=== PATIENT | male | born 1955 | race Caucasian/White ===

== ENCOUNTER 2016-07-02 08:23 | Inpatient (IN) | payer SELFPAY ==
[2016-07-02] MEDS ORDERED: NORMAL SALINE 1000 ML 1,000 ML IV ONE ×3 (08:44→13:44)
[2016-07-02] MEDS ORDERED: ONDANSETRON HCL INJ/PF 4 MG/2 ML SDV IV ONE (08:44)
[2016-07-02] MEDS ORDERED: FAMOTIDINE INJ/PF 20 MG/2 ML SDV IV ONE (08:45)
--- NOTE | 2016-07-02 08:50 | ER Document Report ---
Addendum entered and electronically signed by NANCY PARRA NP 07/02/16 16:09 : Course - Re-evaluation Re-evalutation: 07/02/16 16:07 RN states that when she spoke with dr Antony he was advised of pt's hypotension , RN states that pt was asymptomatic with hypotension. - Vital Signs Vital signs: Temp Pulse Resp BP Pulse Ox 98.8 F 62 14 93/53 L 96 07/02/16 13:47 07/02/16 13:47 07/02/16 13:47 07/02/16 13:47 07/02/16 13:47 - Laboratory Result Diagrams: 07/02/16 09:00 07/02/16 09:00 Laboratory results interpreted by me: 07/02/16 07/02/16 07/02/16 09:00 09:00 13:00 Lymphocytes % 9.9 L Monocytes % 14.2 H Sodium 125.8 L Chloride 70 L Carbon Dioxide 31 H Anion Gap 25 H BUN 96 H Creatinine 7.54 H Est GFR ( Amer) 9 L Est GFR (Non-Af Amer) 7 L Glucose 127 H Calcium 10.7 H Total Protein 9.2 H Albumin 5.5 H Urine Protein 100 H Urine Glucose (UA) 50 H Urine Blood MODERATE H Original Note: ED GI/ - General Chief Complaint: Vomiting Stated Complaint: NAUSEA AND VOMITING Mode of Arrival: Ambulatory Information source: Patient Notes: Patient presents complaining of nausea and vomiting for the past 3 days. Patient states he's had abdominal pain only with eating food. Patient currently denies any abdominal tenderness at this time. Patient denies any fever, diarrhea, or urinary symptoms. Patient states he last voided just prior to arrival in the emergency department. TRAVEL OUTSIDE OF THE [place] IN LAST 30 DAYS: No - HPI Patient complains to provider of: Abdominal pain - With eating, Vomiting. No: Diarrhea Onset: Other - 3 days Timing/Duration: Persistent Quality of pain: No pain Severity at maximum: Moderate Pain Level: Denies Associated symptoms: Dizzy, Nausea, Vomiting. denies: Diarrhea, Dysuria, Fever , Loss of appetite, Urinary hesitancy, Urinary frequency, Urinary retention, Urinary urgency Exacerbated by: Denies Relieved by: Denies Similar symptoms previously: No Recently seen / treated by doctor: No - Related Data Allergies/Adverse Reactions: No Known Allergies Allergy (Verified 07/02/16 10:04) Home Medications: Current Home Medications Lisinopril/Hydrochlorothiazide [Lisinopril-Hctz 20-25 mg Tab] 1 each PO DAILY [History] Past Medical History - General Information source: Patient - Social History Smoking Status: Never Smoker Chew tobacco use (# tins/day): No Frequency of alcohol use: None Drug Abuse: None Occupation: construction Family History: Reviewed & Not Pertinent Patient has suicidal ideation: No Patient has homicidal ideation: No - Past Medical History Cardiac Medical History: Reports: Hx Hypertension Malignancy Medical History: Reports Hx Colorectal Cancer Past Surgical History: Reports: Hx Bowel Surgery Review of Systems - Review of Systems Constitutional: No symptoms reported. denies: Fever, Recent illness EENT: No symptoms reported Cardiovascular: Dizziness. denies: Chest pain Respiratory: No symptoms reported. denies: Cough, Short of breath Gastrointestinal: Abdominal pain - Only with food, Nausea, Vomiting, Poor fluid intake. denies: Abdomen distended, Diarrhea, Poor appetite Genitourinary: No symptoms reported. denies: Dysuria, Flank pain Male Genitourinary: No symptoms reported Musculoskeletal: No symptoms reported. denies: Back pain Skin: No symptoms reported Hematologic/Lymphatic: No symptoms reported Neurological/Psychological: No symptoms reported Physical Exam - Vital signs Vitals: Temp Pulse Resp BP Pulse Ox 97.3 F 89 20 123/99 H 98 07/02/16 08:27 07/02/16 08:27 07/02/16 08:27 07/02/16 08:27 07/02/16 08:27 - General General appearance: Appears well, Alert In distress: None - HEENT Head: Normocephalic, Atraumatic Eyes: Normal Nasal: Normal Mouth/Lips: Normal Mucous membranes: Normal Neck: Normal - Respiratory Respiratory status: No respiratory distress Chest status: Nontender Breath sounds: Normal. No: Rales, Rhonchi, Stridor, Wheezing Chest palpation: Normal - Cardiovascular Rhythm: Regular Heart sounds: S1 appreciated, S2 appreciated Murmur: No - Abdominal Inspection: Normal Distension: No distension Bowel sounds: Normal Tenderness: Nontender Organomegaly: No organomegaly - Back Back: Normal, Nontender. No: CVA tenderness - Extremities General upper extremity: Normal inspection, Normal strength General lower extremity: Normal inspection, Normal strength - Neurological Neuro grossly intact: Yes Cognition: Normal Orientation: AAOx4 [place] Coma Scale Eye Opening: Spontaneous Serena Coma Scale Verbal: Oriented [place] Coma Scale Motor: Obeys Commands Serena Coma Scale Total: 15 - Psychological Associated symptoms: Normal affect, Normal mood - Skin Skin Temperature: Warm Skin Moisture: Dry Skin Color: Normal Course - Re-evaluation Re-evalutation: 07/02/2016 10:00 Patient states he is unable to ride a urine specimen but he did void just prior to his arrival in the emergency department. Patient states he's been voiding at home but just with decreased frequency. Patient states denies any abdominal tenderness at this time. Patient reports feeling much improved after nausea medication and IV fluids. Discussed abnormal renal function with patient, patient denies any previous history of renal function abnormalities. Consulted with Dr. Paez who recommends consultation with patient's doctor for admission. 07/02/16 10:[address] Antony who agrees to accept patient for admission to telemetry unit, patient advised of plan of care and is agreeable. - Vital Signs Vital signs: Temp Pulse Resp BP Pulse Ox 98.8 F 62 14 93/53 L 96 07/02/16 13:47 07/02/16 13:47 07/02/16 13:47 07/02/16 13:47 07/02/16 13:47 - Laboratory Result Diagrams: 07/02/16 09:00 07/02/16 09:00 Laboratory results interpreted by me: 07/02/16 07/02/16 07/02/16 09:00 09:00 13:00 Lymphocytes % 9.9 L Monocytes % 14.2 H Sodium 125.8 L Chloride 70 L Carbon Dioxide 31 H Anion Gap 25 H BUN 96 H Creatinine 7.54 H Est GFR ( Amer) 9 L Est GFR (Non-Af Amer) 7 L Glucose 127 H Calcium 10.7 H Total Protein 9.2 H Albumin 5.5 H Urine Protein 100 H Urine Glucose (UA) 50 H Urine Blood MODERATE H Labs- Entire Visit 07/02/16 07/02/16 09:00 09:00 WBC 6.1 RBC 4.85 Hgb 16.1 Hct 45.3 MCV 94 MCH 33.3 MCHC 35.6 RDW 12.9 Plt Count 280 Seg Neutrophils % 75.8 Lymphocytes % 9.9 L Monocytes % 14.2 H Eosinophils % 0.0 Basophils % 0.1 Absolute Neutrophils 4.6 Absolute Lymphocytes 0.6 Absolute Monocytes 0.9 Absolute Eosinophils 0.0 Absolute Basophils 0.0 Sodium 125.8 L Potassium 4.7 Chloride 70 L Carbon Dioxide 31 H Anion Gap 25 H BUN 96 H Creatinine 7.54 H Est GFR ( Amer) 9 L Est GFR (Non-Af Amer) 7 L Glucose 127 H Calcium 10.7 H Total Bilirubin 1.1 Direct Bilirubin 0.0 AST 34 ALT 27 Alkaline Phosphatase 71 Total Protein 9.2 H Albumin 5.5 H Lipase 121.4 Discharge - Discharge Clinical Impression: Dehydration, Hyponatremia Nausea & vomiting Qualifiers: Vomiting type: unspecified Vomiting Intractability: non-intractable Qualified Code(s): R11.2 - Nausea with vomiting, unspecified Acute kidney failure Qualifiers: Acute renal failure type: with acute tubular necrosis Qualified Code(s): N17.0 - Acute kidney failure with tubular necrosis Condition: Fair Disposition: ADMITTED INPATIENT Admitting Provider: Antony Unit Admitted: Telemetry
[2016-07-02 09:24] LABS: ABSOLUTE LYMPHOCYTES (AUTO) 0.6 10^3/uL (0.5-4.7); ABSOLUTE MONOCYTES (AUTO) 0.9 10^3/uL (0.1-1.4); ABSOLUTE NEUT (AUTO) 4.6 10^3/uL (1.7-8.2); BASOPHILS % (AUTO) 0.1 % (0-2); HEMATOCRIT 45.3 % (37.9-51.0); HEMOGLOBIN 16.1 g/dL (13.5-17.0); LYMPHOCYTES % (AUTO) 9.9 % (13-45); MEAN CORPUSCULAR HEMOGLOBIN 33.3 pg (27.0-33.4); MEAN CORPUSCULAR HGB CONC 35.6 g/dL (32.0-36.0); MEAN CORPUSCULAR VOLUME 94 fl (80-97); MONOCYTES % (AUTO) 14.2 % (3-13); RED BLOOD COUNT 4.85 10^6/uL (4.35-5.55); RED CELL DISTRIBUTION WIDTH 12.9 % (11.5-14.0); SEGMENTED NEUTROPHILS % (AUTO) 75.8 % (42-78); WHITE BLOOD COUNT 6.1 10^3/uL (4.0-10.5)
[2016-07-02 09:45] LABS: ALANINE AMINOTRANSFERASE 27 U/L (21-72); ALBUMIN 5.5 g/dL (3.5-5.0); ALKALINE PHOSPHATASE 71 U/L (38-126); ASPARTATE AMINO TRANSFERASE 34 U/L (17-59); BILIRUBIN,TOTAL 1.1 mg/dL (0.2-1.3); BLOOD UREA NITROGEN 96 mg/dL (7-20); CALCIUM 10.7 mg/dL (8.4-10.2); CARBON DIOXIDE 31 mmol/L (22-30); CHLORIDE 70 mmol/L (98-107); CREATININE RESULT 7.54 mg/dL (0.52-1.25); GLUCOSE 127 mg/dL (75-110); LIPASE 121.4 U/L (23-300); POTASSIUM 4.7 mmol/L (3.6-5.0); SODIUM 125.8 mmol/L (137-145); TOTAL PROTEIN 9.2 g/dL (6.3-8.2)
[2016-07-02 09:47] LABS: ANION GAP 25 (5-19)
[2016-07-02] MEDS ORDERED: NORMAL SALINE 1000 ML 1,000 ML IV PRN ×2 (11:39→13:14)
--- NOTE | 2016-07-02 11:59 | EKG REPORT ---
SEVERITY:- BORDERLINE ECG - SINUS RHYTHM BORDERLINE ST ELEVATION, INFERIOR LEADS : Confirmed by: Jose Quintanilla 02-Jul-2016 11:58:47
[2016-07-02] MEDS ORDERED: ONDANSETRON 4 MG TAB.RAPDIS PO PRN (13:44)
[2016-07-02] MEDS ORDERED: INFLUENZA ADLT QUAD (36MOS+) 2016-17 VAC 0.5 ML SYR IM PRN (13:48)
[2016-07-02 13:52] LABS: APPEARANCE,URINE CLOUDY; BILIRUBIN,URINE NEGATIVE (NEGATIVE); GLUCOSE, URINE 50 mg/dL (NEGATIVE); KETONES,URINE NEGATIVE (NEGATIVE); LEUKOCYTE ESTERASE,URINE NEGATIVE (NEGATIVE); NITRITE,URINE NEGATIVE (NEGATIVE); PROTEIN,URINE 100 mg/dL (NEGATIVE); URINE SPECIFIC GRAVITY 1.015; UROBILINOGEN,URINE NEGATIVE mg/dL (<2.0)
[2016-07-02] MEDS ORDERED: ENOXAPARIN SODIUM INJ 30 MG/0.3 ML DISP.SYRIN SUBCUT ONE (14:30)
--- NOTE | 2016-07-02 17:50 | PDOC H&P ---
History of Present Illness Admission Date/PCP: 07/02/16 10:39 TRACEY OJEDA MD Patient complains of: 4d sweats chills vomiting 6 times a day History of Present Illness: TONIA COFFEY is a 61 year old male 3d vomiting Past Medical History Cardiac Medical History: Reports: Hyperlipidema, Hypertension Pulmonary Medical History: Reports: None EENT Medical History: Reports: None Neurological Medical History: Reports: None Endocrine Medical History: Reports: None Renal/ Medical History: Reports: None Malignancy Medical History: Reports: Colorectal Cancer - 2008 partial colectomy stage4 nodes & liver. Chemo 7m Musculoskeltal Medical History: Reports: Arthritis Psychiatric Medical History: Reports: None Traumatic Medical History: Reports: None Infectious Medical History: Reports: None Past Surgical History Past Surgical History: Reports: Other - 2010 partial colectomy Social History Information Source: Dr. Troncoso Smoking Status: Never Smoker Frequency of Alcohol Use: Social Drugs: None Hx Prescription Drug Abuse: No - Advance Directive Resuscitation Status: Full Code Family History Family History: Hypertension, Malignancy Parental Family History Reviewed: Yes Children Family History Reviewed: Yes Sibling(s) Family History Reviewed.: Yes Medication/Allergy Home Medications: Lisinopril/Hydrochlorothiazide [Lisinopril-Hctz 20-25 mg Tab] 1 each PO DAILY Allergies/Adverse Reactions: No Known Allergies Allergy (Verified 07/02/16 10:04) Review of Systems Constitutional: PRESENT: chills, night sweats. ABSENT: fever(s) Nose, Mouth, and Throat: ABSENT: headache(s), sore throat Cardiovascular: ABSENT: chest pain Respiratory: ABSENT: cough, dyspnea Gastrointestinal: PRESENT: abdominal pain - transient epigastric cramps 3d ago, vomiting. ABSENT: constipation, diarrhea, hematemesis, melena Genitourinary: ABSENT: difficulty urinating, dysuria, hematuria Physical Exam Vital Signs: Temp Pulse Resp BP Pulse Ox 99.1 F 65 11 L 91/59 L 97 07/02/16 12:39 07/02/16 10:19 07/02/16 13:01 07/02/16 13:00 07/02/16 13:01 General appearance: PRESENT: no acute distress Mouth exam: PRESENT: dry mucosa Neck exam: ABSENT: lymphadenopathy, tenderness, thyromegaly, tracheal deviation Respiratory exam: PRESENT: clear to auscultation jumana Cardiovascular exam: PRESENT: systolic murmur - grade1 L sternal border. ABSENT : diastolic murmur, irregular rhythm GI/Abdominal exam: PRESENT: normal bowel sounds. ABSENT: mass, organolmegaly, tenderness Extremities exam: ABSENT: pedal edema Neurological exam: PRESENT: alert Psychiatric exam: PRESENT: appropriate affect Skin exam: ABSENT: rash Results Laboratory Results: Abnormal - 24 hr 07/02/16 07/02/16 09:00 09:00 Lymphocytes % 9.9 L Monocytes % 14.2 H Sodium 125.8 L Chloride 70 L Carbon Dioxide 31 H Anion Gap 25 H BUN 96 H Creatinine 7.54 H Est GFR ( Amer) 9 L Est GFR (Non-Af Amer) 7 L Glucose 127 H Calcium 10.7 H Total Protein 9.2 H Albumin 5.5 H Assessment & Plan - Diagnosis (1) Acute kidney failure Qualifiers: Acute renal failure type: with acute tubular necrosis Qualified Code (s): N17.0 - Acute kidney failure with tubular necrosis Is this a current diagnosis for this admission?: YesPlan: NS 3rd bolus then 150/h (2) Hyponatremia Is this a current diagnosis for this admission?: YesPlan: NS (3) Other viral enteritis Is this a current diagnosis for this admission?: YesPlan: ondansetron - Time Time Spent: 30 to 50 Minutes Medications reviewed and adjusted accordingly: Yes Anticipated discharge: Home Within: within 48 hours
[2016-07-02] MEDS: FAMOTIDINE INJ/PF 20 MG/2 ML SDV IV SCH (21:21)
[2016-07-03 06:34] LABS: ANION GAP 17 (5-19); BLOOD UREA NITROGEN 84 mg/dL (7-20); CALCIUM 8.9 mg/dL (8.4-10.2); CARBON DIOXIDE 24 mmol/L (22-30); CHLORIDE 88 mmol/L (98-107); CREATININE RESULT 3.76 mg/dL (0.52-1.25); GLUCOSE 100 mg/dL (75-110); SODIUM 128.6 mmol/L (137-145)
[2016-07-03 06:47] LABS: POTASSIUM 3.6 mmol/L (3.6-5.0)
--- NOTE | 2016-07-03 06:59 | PDOC PROGRESS REPORT ---
Subjective Progress Note for:: 07/03/16 Subjective:: nausea hiccups Physical Exam Vital Signs: Temp Pulse Resp BP Pulse Ox 99.2 F 74 16 98/65 L 98 07/02/16 23:30 07/03/16 02:00 07/02/16 23:30 07/02/16 23:30 07/02/16 23:30 Intake & Output 07/01/16 07/02/16 07/03/16 07:59 07:59 07:59 Intake Total 2360 Balance 2360 Weight 143 lb 15.39 oz General appearance: PRESENT: no acute distress Respiratory exam: PRESENT: clear to auscultation jumana Cardiovascular exam: ABSENT: diastolic murmur, irregular rhythm, systolic murmur Rectal exam: ABSENT: tenderness Extremities exam: ABSENT: pedal edema Results Laboratory Results: 07/03/16 05:19 07/03/16 05:19 Sodium 128.6 L Potassium 3.6 D Chloride 88 L Carbon Dioxide 24 Anion Gap 17 BUN 84 H Creatinine 3.76 H Est GFR ( Amer) 20 L Est GFR (Non-Af Amer) 17 L Glucose 100 Calcium 8.9 Assessment & Plan - Diagnosis (1) Acute kidney failure Qualifiers: Acute renal failure type: with acute tubular necrosis Qualified Code (s): N17.0 - Acute kidney failure with tubular necrosis Is this a current diagnosis for this admission?: YesPlan: creatinine fell by half but bun still high. Continue NS150 (2) Hyponatremia Is this a current diagnosis for this admission?: YesPlan: improving slowly (3) Other viral enteritis Is this a current diagnosis for this admission?: YesPlan: ondansetron failed. Try promethazine. (4) Hiccups Is this a current diagnosis for this admission?: YesPlan: try a dose of thorazine
[2016-07-03] MEDS ORDERED: ENOXAPARIN SODIUM INJ 30 MG/0.3 ML DISP.SYRIN SUBCUT SCH (08:00)
[2016-07-03] MEDS ORDERED: CHLORPROMAZINE HCL 25 MG TABLET PO ONE (08:00)
[2016-07-03] MEDS: PROMETHAZINE HCL 25 MG TABLET PO PRN ×2 (08:29→18:00)
[2016-07-03] MEDS: FAMOTIDINE INJ/PF 20 MG/2 ML SDV IV SCH ×2 (13:48→21:54)
[2016-07-03] MEDS ORDERED: PROMETHAZINE HCL 25 MG SUPP.RECT PR PRN (19:55)
[2016-07-04 07:46] LABS: ANION GAP 19 (5-19); BLOOD UREA NITROGEN 92 mg/dL (7-20); CALCIUM 8.7 mg/dL (8.4-10.2); CARBON DIOXIDE 25 mmol/L (22-30); CHLORIDE 85 mmol/L (98-107); CREATININE RESULT 2.35 mg/dL (0.52-1.25); GLUCOSE 97 mg/dL (75-110); POTASSIUM 3.5 mmol/L (3.6-5.0); SODIUM 128.5 mmol/L (137-145)
--- NOTE | 2016-07-04 08:55 | PDOC PROGRESS REPORT ---
Subjective Progress Note for:: 07/04/16 Subjective:: vomited*5. 2 stools. No abdominal pain Physical Exam Vital Signs: Temp Pulse Resp BP Pulse Ox 99.0 F 76 18 96/56 L 98 07/04/16 07:58 07/04/16 07:58 07/04/16 07:58 07/04/16 07:58 07/04/16 07:58 Intake & Output 07/03/16 07/04/16 07/05/16 07:59 07:59 07:59 Intake Total 2360 240 Balance 2360 240 Weight 143 lb 15.39 oz General appearance: PRESENT: mild distress Respiratory exam: PRESENT: clear to auscultation jumana Cardiovascular exam: ABSENT: diastolic murmur, irregular rhythm, systolic murmur GI/Abdominal exam: ABSENT: mass, organolmegaly, tenderness Extremities exam: ABSENT: pedal edema Results Laboratory Results: 07/04/16 04:39 07/04/16 04:39 Sodium 128.5 L Potassium 3.5 L Chloride 85 L Carbon Dioxide 25 Anion Gap 19 BUN 92 H Creatinine 2.35 H Est GFR ( Amer) 34 L Est GFR (Non-Af Amer) 28 L Glucose 97 Calcium 8.7 Impressions: Acute Abdomen Series 07/03/16 00:00 IMPRESSION: Findings consistent with a small bowel obstruction Assessment & Plan - Diagnosis (1) Intestinal adhesions with obstruction Is this a current diagnosis for this admission?: YesPlan: NPO. Consult surgery (2) Acute kidney failure Qualifiers: Acute renal failure type: with acute tubular necrosis Qualified Code (s): N17.0 - Acute kidney failure with tubular necrosis Is this a current diagnosis for this admission?: YesPlan: bun higher but creatinine improving. BP around 90. Increase NS200 (3) Hyponatremia Is this a current diagnosis for this admission?: Yes (4) Other viral enteritis Is this a current diagnosis for this admission?: Yes (5) Hiccups Is this a current diagnosis for this admission?: Yes
[2016-07-04] MEDS ORDERED: NORMAL SALINE 1000 ML 1,000 ML IV PRN (08:57)
[2016-07-04] MEDS ORDERED: PHARMACY COMMUNICATION ORDER MC NR (09:15)
[2016-07-04] MEDS: FAMOTIDINE INJ/PF 20 MG/2 ML SDV IV SCH ×2 (10:20→23:29)
--- NOTE | 2016-07-04 19:26 | PDOC CONSULTATION ---
Consultation Consult Date: 07/04/16 Consult reason:: Acute kidney injury History of Present Illness Admission Date/PCP: 07/02/16 13:44 TRACEY OJEDA MD History of Present Illness: Mr. Cardenas is a 61 years old gentleman with a past medical history of hypertension and a history of Cancer of the colon for which he underwent partial colectomy was admitted with a history of profound weakness orthostasis nausea vomiting and diarrhea. States he began to feel uneasy and orthostatic on last Saturday while he was working for [employer]. It got worse as the evening progressed into the night and he began to have nausea vomiting which later on on by Saturday morning had reached a point of having copious amounts of diarrhea. It was lose watery with no evidences of blood. No history of any hematemesis. He had abdominal pains. He had had shaking chills on Saturday at an early Saturday but that resolved spontaneously. Evaluations the ER revealed that the patient was hypotensive. Lab evaluations revealed acute renal failure with this BUNs/creatinine the 70/7.5 with a sodium of 125. He was started on fluid resuscitation and then admitted for further evaluations. He has had fluid resuscitation and today he feels a whole lot better. The nausea and vomiting is completely resolved. He had 3 small episodes of watery diarrhea this morning. However he is very hungry and he states he wants to eat as he is only on clear liquids at the moment. He also mentions of her painful fluctuating mass on his back. He states she has had this incised and drained some time ago and he wonders if it does recur. He admits to smoking. He also drinks 4 beers every day after work. He is on lisinopril/HCT for his hypertension. Past Medical History Cardiac Medical History: Reports: Hyperlipidemia Pulmonary Medical History: Reports: None EENT Medical History: Reports: None Neurological Medical History: Reports: None Endocrine Medical History: Reports: None Complications of Diabetes: Reports: None Renal/ Medical History: Reports: None Malignancy Medical History: Reports: Colorectal Cancer - 2009 partial colectomy stage4 nodes & liver. Chemo 7m Musculoskeltal Medical History: Reports: Arthritis Psychiatric Medical History: Reports: None Denies: Depression Traumatic Medical History: Reports: None Infectious Medical History: Reports: None Past Surgical History Past Surgical History: Reports: Colectomy - Partial, Other - 2011 partial colectomy Social History Smoking Status: Never Smoker Cigarettes Packs Per Day: 1 Number of Years Smokin Frequency of Alcohol Use: Social Hx Recreational Drug Use: No Drugs: None Hx Prescription Drug Abuse: No - Advance Directive Resuscitation Status: Full Code Family History Parental Family History Reviewed: No Children Family History Reviewed: No Sibling(s) Family History Reviewed.: No Medication/Allergy Home Medications: Lisinopril/Hydrochlorothiazide [Lisinopril-Hctz 20-25 mg Tab] 1 each PO DAILY Allergies/Adverse Reactions: No Known Allergies Allergy (Verified 07/02/16 10:04) Review of Systems Constitutional: PRESENT: as per HPI, weakness. ABSENT: fever(s), headache(s), night sweats Gastrointestinal: PRESENT: abdominal pain, diarrhea, nausea, vomiting. ABSENT: coffee ground emesis, dysphagia, heartburn, hematemesis, hematochezia, melena Genitourinary: ABSENT: dysuria, hematuria Musculoskeletal: ABSENT: deformity, joint swelling Integumentary: PRESENT: diaphoresis. ABSENT: erythema, lesions, pruritus Neurological: ABSENT: focal weakness Physical Exam Vital Signs: Temp Pulse Resp BP Pulse Ox 98.3 F 66 20 95/59 L 98 07/04/16 16:23 07/04/16 16:23 07/04/16 16:23 07/04/16 16:23 07/04/16 16:23 Intake & Output 07/03/16 07/04/16 07/05/16 06:59 06:59 06:59 Intake Total 2360 240 1500 Balance 2360 240 1500 Weight 65.3 kg General appearance: PRESENT: no acute distress Respiratory exam: PRESENT: clear to auscultation jumana, symmetrical. ABSENT: crackles Cardiovascular exam: PRESENT: +S1, +S2 GI/Abdominal exam: PRESENT: soft. ABSENT: ascites, distended, firm, guarding, mass, tenderness Extremities exam: ABSENT: pedal edema Neurological exam: PRESENT: alert, awake Skin exam: PRESENT: other - He has a soft cystic swelling with fluctuation on his back. Results Laboratory Results: 07/04/16 04:39 07/04/16 04:39 Sodium 128.5 L Potassium 3.5 L Chloride 85 L Carbon Dioxide 25 Anion Gap 19 BUN 92 H Creatinine 2.35 H Est GFR ( Amer) 34 L Est GFR (Non-Af Amer) 28 L Glucose 97 Calcium 8.7 Impressions: Acute Abdomen Series 07/03/16 00:00 IMPRESSION: Findings consistent with a small bowel obstruction Assessment & Plan - Diagnosis (1) Infected cyst of skin Plan: Advise the the nurse to see the surgeon on-call who has seen him early on a consult could see him and evaluate him for possible incision and drainage. If not it needs to be addressed with Dr. Ojeda (2) Acute kidney failure Qualifiers: Acute renal failure type: with acute tubular necrosis Qualified Code (s): N17.0 - Acute kidney failure with tubular necrosis Is this a current diagnosis for this admission?: YesPlan: Clinically still dehydrated. Patient has shown marked improvement of his renal injury. I would bolus saline followed by saline at the current rate with addition of KCl. (3) Dehydration Plan: Should improve with the appropriate fluid resuscitation. (4) Hyponatremia Is this a current diagnosis for this admission?: YesPlan: Most likely multi-factorial. Combination of dehydration/medicines/beer with check appropriate labs. I would on his discharge given the fact that he is a beer drinker changes antihypertensive to plain lisinopril and and remove the HCTZ. (5) Other viral enteritis Is this a current diagnosis for this admission?: YesPlan: Possibly Rotavirus. Patient improving well. C. difficile labs pending.
[2016-07-04] MEDS: POTASSI CL 40 MEQ/NS 1L 1,000 ML IV PRN (19:40)
[2016-07-05] MEDS: POTASSI CL 40 MEQ/NS 1L 1,000 ML IV PRN ×2 (03:10→11:08)
[2016-07-05 06:13] LABS: ANION GAP 11 (5-19); BLOOD UREA NITROGEN 42 mg/dL (7-20); CALCIUM 8.3 mg/dL (8.4-10.2); CARBON DIOXIDE 23 mmol/L (22-30); CHLORIDE 98 mmol/L (98-107); CREATININE RESULT 1.11 mg/dL (0.52-1.25); GLUCOSE 85 mg/dL (75-110); MAGNESIUM 2.7 mg/dL (1.6-2.3); PHOSPHORUS 1.9 mg/dL (2.5-4.5); POTASSIUM 4.3 mmol/L (3.6-5.0); SODIUM 131.7 mmol/L (137-145)
--- NOTE | 2016-07-05 07:43 | PDOC PROGRESS REPORT ---
Subjective Progress Note for:: 07/05/16 Subjective:: much better after 4 watery stools. Hungry! Recurrant sore nod L scapula. Physical Exam Vital Signs: Temp Pulse Resp BP Pulse Ox 98.2 F 61 18 97/63 L 94 07/04/16 23:29 07/05/16 02:00 07/04/16 23:29 07/04/16 23:29 07/04/16 23:29 Intake & Output 07/03/16 07/04/16 07/05/16 07:59 07:59 07:59 Intake Total 2360 240 4100 Balance 2360 240 4100 Weight 143 lb 15.39 oz 139 lb 15.896 oz General appearance: PRESENT: no acute distress Respiratory exam: PRESENT: clear to auscultation jumana Cardiovascular exam: ABSENT: diastolic murmur, irregular rhythm, systolic murmur GI/Abdominal exam: ABSENT: mass, organolmegaly, tenderness Skin exam: PRESENT: other - L scapula tender dermal nodule 3cm Results Laboratory Results: 07/05/16 05:13 07/04/16 07/05/16 07/05/16 04:39 05:13 05:13 Sodium 128.5 L 131.7 L Potassium 3.5 L 4.3 Chloride 85 L 98 Carbon Dioxide 25 23 Anion Gap 19 11 BUN 92 H 42 H Creatinine 2.35 H 1.11 Est GFR ( Amer) 34 L > 60 Est GFR (Non-Af Amer) 28 L > 60 Glucose 97 85 Serum Osmolality 284 Calcium 8.7 8.3 L Phosphorus 1.9 L Magnesium 2.7 H Impressions: Acute Abdomen Series 07/03/16 00:00 IMPRESSION: Findings consistent with a small bowel obstruction Assessment & Plan - Diagnosis (1) Acute kidney failure Qualifiers: Acute renal failure type: with acute tubular necrosis Qualified Code (s): N17.0 - Acute kidney failure with tubular necrosis Is this a current diagnosis for this admission?: YesPlan: resolved (2) Intestinal adhesions with obstruction Is this a current diagnosis for this admission?: YesPlan: He may have had a transient small bowel obstruction from adhesions rather than an ileus because he had bowel sounds yesterday too. (3) Hyponatremia Is this a current diagnosis for this admission?: YesPlan: improving (4) Other viral enteritis Is this a current diagnosis for this admission?: YesPlan: improving. Advance diet (5) Hiccups Is this a current diagnosis for this admission?: YesPlan: gone (6) Sebaceous cyst Is this a current diagnosis for this admission?: YesPlan: consult surgery
--- NOTE | 2016-07-05 08:55 | PDOC CONSULTATION ---
History of Present Illness Admission Date/PCP: 07/02/16 13:44 TRACEY OJEDA MD History of Present Illness: A 61-year-old male with history of a colectomy in 2008 for stage IV colon cancer with metastases to the liver. Underwent resection of the liver metastases as well. Had a port placed and underwent chemotherapy for several months, finishing in early 2009. He reports no recurrence of his disease since then, but he has not had any colonoscopy since his surgery. He reports a normal bowel pattern of one soft, formed stool in the morning after coffee and one in the evening after supper. He reports that evening, 06/28/2016 he to cheese dogs, asparagus and drink tea. He felt fine and slept well. Saturday morning at work she had onset of severe sweats and then a dull but piercing abdominal pain. He ate lunch but the pain rapidly progressed to very severe, 9/10, central abdomen, but radiating throughout his whole abdomen. He then proceeded to have continued intermittent abdominal pain on Saturday and Saturday as well as sweats. He reports some abdominal bloating with churning abdominal sounds. He had another bowel movement on Saturday. He had nausea and vomiting Saturday, Saturday and Saturday, multiple bouts. He had no bowel movement Saturday or Saturday, but had 4 diarrheal stools mid-day today. He reports the abdominal pain was 4/10 earlier today and is currently 0/10. He denies bloating. He denies any further fever or chills. He denies lightheadedness, dizziness, chest pain, shortness breath. He is hungry and thirsty. Smokes one pack per day. Drinks 4-6 beers each night. No recreational drug use. Past Medical History Cardiac Medical History: Reports: Hyperlipidema, Hypertension Pulmonary Medical History: Reports: None EENT Medical History: Reports: None Neurological Medical History: Reports: None Endocrine Medical History: Reports: None Renal/ Medical History: Reports: None Malignancy Medical History: Reports: Colorectal Cancer - 2009 partial colectomy stage4 nodes & liver. Chemo 7m Musculoskeltal Medical History: Reports: Arthritis Psychiatric Medical History: Reports: None Denies: Depression Traumatic Medical History: Reports: None Infectious Medical History: Reports: None Past Surgical History Past Surgical History: Reports: Other - Partial colectomy, 2008 Social History Information Source: Patient Smoking Status: Current Every Day Smoker Cigarettes Packs Per Day: 1 Number of Years Smokin Frequency of Alcohol Use: Heavy - 4-6 beers every night Hx Recreational Drug Use: No Drugs: None Hx Prescription Drug Abuse: No - Advance Directive Resuscitation Status: Full Code Family History Family History: Hypertension, Other - Mother, brother and sister with colon polyps, but no one with colon cancer. Parental Family History Reviewed: Yes Children Family History Reviewed: NA Sibling(s) Family History Reviewed.: Yes Medication/Allergy Home Medications: Lisinopril/Hydrochlorothiazide [Lisinopril-Hctz 20-25 mg Tab] 1 each PO DAILY Allergies/Adverse Reactions: No Known Allergies Allergy (Verified 07/02/16 10:04) Review of Systems All systems: reviewed and no additional remarkable complaints except as stated Physical Exam Vital Signs: Temp Pulse Resp BP Pulse Ox 98.2 F 61 18 97/63 L 94 07/04/16 23:29 07/05/16 02:00 07/04/16 23:29 07/04/16 23:29 07/04/16 23:29 Intake & Output 07/04/16 07/05/16 07/06/16 06:59 06:59 06:59 Intake Total 240 4100 Balance 240 4100 Weight 63.5 kg General appearance: PRESENT: no acute distress, thin Head exam: PRESENT: normocephalic Eye exam: PRESENT: EOMI Mouth exam: PRESENT: tongue midline Teeth exam: PRESENT: poor dentation Neck exam: ABSENT: JVD, lymphadenopathy, tenderness, thyromegaly Respiratory exam: PRESENT: clear to auscultation jumana Cardiovascular exam: PRESENT: RRR GI/Abdominal exam: PRESENT: normal bowel sounds, soft. ABSENT: distended, guarding, rebound, tenderness Extremities exam: ABSENT: pedal edema Neurological exam: PRESENT: alert, oriented to person, oriented to place, oriented to time, oriented to situation Psychiatric exam: PRESENT: appropriate affect, normal mood Skin exam: ABSENT: jaundice, pallor Results Laboratory Results: 07/05/16 05:13 07/05/16 07/05/16 05:13 05:13 Sodium 131.7 L Potassium 4.3 Chloride 98 Carbon Dioxide 23 Anion Gap 11 BUN 42 H Creatinine 1.11 Est GFR ( Amer) > 60 Est GFR (Non-Af Amer) > 60 Glucose 85 Serum Osmolality 284 Calcium 8.3 L Phosphorus 1.9 L Magnesium 2.7 H Impressions: Acute Abdomen Series 07/03/16 00:00 IMPRESSION: Findings consistent with a small bowel obstruction Status: Image reviewed by me Assessment & Plan - Diagnosis (1) Acute kidney failure Qualifiers: Acute renal failure type: with acute tubular necrosis Qualified Code (s): N17.0 - Acute kidney failure with tubular necrosis Is this a current diagnosis for this admission?: YesPlan: Resolving. (2) Dehydration Is this a current diagnosis for this admission?: YesPlan: Corrected. Acute renal failure is resolving. Good urine output. (3) Hyponatremia Is this a current diagnosis for this admission?: YesPlan: Resolving. (4) Nausea & vomiting Qualifiers: Vomiting type: unspecified Vomiting Intractability: non-intractable Qualified Code(s): R11.2 - Nausea with vomiting, unspecified Is this a current diagnosis for this admission?: YesPlan: 61-year-old white male with resolving abdominal complaints. He now has a soft, nontender, nondistended belly with 4 bowel movements today. He has normal bowel sounds and is hungry and thirsty. Differential includes small bowel obstruction, viral gastroenteritis, bacterial gastroenteritis. In any case it seems to have resolved. Recommend clear liquids with gradual diet advancement if tolerated. (5) Other viral enteritis Is this a current diagnosis for this admission?: Yes
[2016-07-05] MEDS ORDERED: POTASSI CL 40 MEQ/NS 1L 1,000 ML IV PRN (09:00)
--- NOTE | 2016-07-05 09:50 | PDOC PROGRESS REPORT ---
Subjective Progress Note for:: 07/05/16 Subjective:: Feels much better. Tolerating solids with no abdominal pain. Diarrhea resolving. Patient does complain of left upper back pain. Patient had a sebaceous cyst excised a number of years ago and now it has swollen and it is painful. Physical Exam Vital Signs: Temp Pulse Resp BP Pulse Ox 98.2 F 61 18 97/63 L 94 07/04/16 23:29 07/05/16 02:00 07/04/16 23:29 07/04/16 23:29 07/04/16 23:29 Intake & Output 07/04/16 07/05/16 07/06/16 06:59 06:59 06:59 Intake Total 240 4100 Balance 240 4100 Weight 63.5 kg General appearance: PRESENT: no acute distress Respiratory exam: PRESENT: clear to auscultation jumana Cardiovascular exam: PRESENT: RRR GI/Abdominal exam: PRESENT: other - Soft, nondistended, nontender to palpation. Skin exam: PRESENT: other - Left upper back with the 5 x 3 cm region of erythema with underlying smooth mass with central opening with drainage of purulent fluid. Results Laboratory Results: 07/05/16 05:13 07/05/16 07/05/16 05:13 05:13 Sodium 131.7 L Potassium 4.3 Chloride 98 Carbon Dioxide 23 Anion Gap 11 BUN 42 H Creatinine 1.11 Est GFR ( Amer) > 60 Est GFR (Non-Af Amer) > 60 Glucose 85 Serum Osmolality 284 Calcium 8.3 L Phosphorus 1.9 L Magnesium 2.7 H Impressions: Acute Abdomen Series 07/03/16 00:00 IMPRESSION: Findings consistent with a small bowel obstruction Assessment & Plan - Diagnosis (1) Gastroenteritis Is this a current diagnosis for this admission?: YesPlan: Resolved. Provided he continues to do well today may discharge the patient home tomorrow. (2) Infected sebaceous cyst Is this a current diagnosis for this admission?: YesPlan: Giant the sebaceous cyst that is infected. We'll plan excisional debridement in the operating room. I have discussed with the patient the risk and benefits of the surgery including risk of bleeding, infection, recurrence. He understands that the wound will be left open and require some time for it to heal. I will make the patient nothing by mouth. I do not think I can get a sufficient debridement at bedside.
--- NOTE | 2016-07-05 09:57 | PDOC PROGRESS REPORT ---
Subjective Progress Note for:: 07/05/16 Subjective:: Patient seen this morning. He is feeling a whole lot better since he has had something to eat this morning. History of nausea vomiting. Diarrhea is much better. No history of orthostasis. Physical Exam Vital Signs: Temp Pulse Resp BP Pulse Ox 98.2 F 61 18 97/63 L 94 07/04/16 23:29 07/05/16 02:00 07/04/16 23:29 07/04/16 23:29 07/04/16 23:29 Intake & Output 07/04/16 07/05/16 07/06/16 06:59 06:59 06:59 Intake Total 240 4100 Balance 240 4100 Weight 63.5 kg General appearance: PRESENT: no acute distress Respiratory exam: PRESENT: clear to auscultation jumana. ABSENT: crackles Cardiovascular exam: PRESENT: +S1, +S2 GI/Abdominal exam: PRESENT: soft. ABSENT: ascites, distended, firm, guarding, mass, tenderness Results Laboratory Results: 07/05/16 05:13 07/05/16 07/05/16 05:13 05:13 Sodium 131.7 L Potassium 4.3 Chloride 98 Carbon Dioxide 23 Anion Gap 11 BUN 42 H Creatinine 1.11 Est GFR ( Amer) > 60 Est GFR (Non-Af Amer) > 60 Glucose 85 Serum Osmolality 284 Calcium 8.3 L Phosphorus 1.9 L Magnesium 2.7 H Impressions: Acute Abdomen Series 07/03/16 00:00 IMPRESSION: Findings consistent with a small bowel obstruction Assessment & Plan - Diagnosis (2) Acute kidney failure Qualifiers: Acute renal failure type: with acute tubular necrosis Qualified Code (s): N17.0 - Acute kidney failure with tubular necrosis Is this a current diagnosis for this admission?: YesPlan: Improving very well. Sodium is all not better. Continue fluids for today and then DC. (3) Dehydration Is this a current diagnosis for this admission?: Yes (4) Hyponatremia Is this a current diagnosis for this admission?: YesPlan: Much better. Continue present fluids for today and stop. (5) Other viral enteritis Is this a current diagnosis for this admission?: Yes (6) Hypophosphatemia Plan: Will order K-Phos.
[2016-07-05] MEDS: FAMOTIDINE INJ/PF 20 MG/2 ML SDV IV SCH ×2 (10:46→21:56)
[2016-07-05] MEDS ORDERED: PHOSPHORUS #1 250 MG TABLET PO ONE (11:00)
[2016-07-05] MEDS ORDERED: FENTANYL CITRATE INJ/PF 100 MCG/2 ML AMPUL ONE ×2 (15:42)
[2016-07-05] MEDS ORDERED: PROPOFOL INJ 200 MG/20 ML VIAL IV ONE (15:43)
[2016-07-05] MEDS ORDERED: MIDAZOLAM 2 MG/2 ML INJ ONE (15:43)
[2016-07-05] MEDS ORDERED: BUPIVACAINE HCL 0.25 % INJ/PF (2.5 MG/1 ML) 30 ML VIAL ONE (16:18)
[2016-07-05] MEDS ORDERED: CEFAZOLIN INJ 1 GM VIAL ONE (16:35)
[2016-07-05] MEDS ORDERED: MORPHINE SULFATE 10 MG/ML INJ IV PRN ×2 (17:09→17:28)
[2016-07-05] MEDS ORDERED: PROMETHAZINE HCL INJ 25 MG/1 ML VIAL IV PRN ×2 (17:09)
[2016-07-05] MEDS ORDERED: FENTANYL CITRATE INJ/PF 100 MCG/2 ML AMPUL IV PRN ×3 (17:09)
[2016-07-05] MEDS ORDERED: DIPHENHYDRAMINE HCL 50 MG/ML VIAL IV PRN (17:09)
[2016-07-05] MEDS ORDERED: MEPERIDINE HCL/PF INJ 25 MG/1 ML DISP.SYRIN IV PRN (17:09)
[2016-07-05] MEDS ORDERED: OXYCODONE-ACETAMINOPHEN 5-325 MG TABLET PO PRN ×3 (17:09→17:28)
[2016-07-05] MEDS ORDERED: ONDANSETRON HCL INJ/PF 4 MG/2 ML SDV IV PRN (17:28)
--- NOTE | 2016-07-05 17:28 | Operative Report ---
Operative Report DATE OF SURGERY: 07/05/16 PREOPERATIVE DIAGNOSIS: Infected giant sebaceous cyst of the left upper back POSTOPERATIVE DIAGNOSIS: Infected giant sebaceous cyst of the left upper back measuring 3 x 6 cm in size. OPERATION: Excisional debridement of ginat infected sebaceous cyst of the left upper back SURGEON: TAYLOR INGRAM ANESTHESIA: LMAC TISSUE REMOVED OR ALTERED: Sebaceous cyst of the left upper back submitted to pathology. Pus sent for Gram stain and culture. COMPLICATIONS: None ESTIMATED BLOOD LOSS: 30 mL INTRAOPERATIVE FINDINGS: 3 x 6 cm sebaceous cyst with cottage cheese material within the center and pus within the center located in the left upper back. PROCEDURE: Informed consent was obtained. Patient was brought to the operating room. The procedure was done under LMAC. He was placed on his right side down on the operating room table and his left upper back was prepped and draped in usual sterile fashion. Local anesthetic was administered ellipse of skin was taken with the underlying cystic mass with cottage cheeselike material and pus within the center. The planes were very indistinct making the excision more difficult. However all of the cyst lining was excised sharply with a scalpel. Pus and the cottage cheese material within the center was swabbed for Gram stain and culture. The specimen was submitted to pathology. Hemostasis was achieved with electrocautery. The wound was then irrigated and then it was packed. Patient tolerated procedure well with no apparent complications and was taken to the recovery area in stable condition.
[2016-07-05] MEDS: PHOSPHORUS #1 250 MG TABLET PO SCH (17:47)
[2016-07-06] MEDS: POTASSI CL 40 MEQ/NS 1L 1,000 ML IV PRN (05:59)
[2016-07-06 06:22] LABS: ANION GAP 13 (5-19); BLOOD UREA NITROGEN 23 mg/dL (7-20); CALCIUM 8.2 mg/dL (8.4-10.2); CARBON DIOXIDE 21 mmol/L (22-30); CHLORIDE 100 mmol/L (98-107); CREATININE RESULT 0.81 mg/dL (0.52-1.25); GLUCOSE 95 mg/dL (75-110); POTASSIUM 3.9 mmol/L (3.6-5.0); SODIUM 133.6 mmol/L (137-145)
--- NOTE | 2016-07-06 08:52 | PDOC DISCHARGE SUMMARY ---
General - Admit/Disc Date/PCP Admission Date/Primary Care Provider: 07/02/16 13:44 TRACEY OJEDA MD Discharge Date: 07/06/16 - Discharge Diagnosis (1) Acute kidney failure Is this a current diagnosis for this admission?: YesSummary: resolved with vigorous fluids (2) Intestinal adhesions with obstruction Is this a current diagnosis for this admission?: Yes (3) Hyponatremia Is this a current diagnosis for this admission?: YesSummary: resolved with NS (4) Other viral enteritis Is this a current diagnosis for this admission?: YesSummary: gone (5) Hiccups Is this a current diagnosis for this admission?: YesSummary: gone (6) Sebaceous cyst Is this a current diagnosis for this admission?: YesSummary: excised yesterday - Additional Information Resuscitation Status: Full Code Discharge Diet: Regular Discharge Activity: Activity As Tolerated History of Present Illness History of Present Illness: TONIA COFFEY is a 61 year old male 3d vomiting Hospital Course Hospital Course: see above Physical Exam Vital Signs: Temp Pulse Resp BP Pulse Ox 98.7 F 71 20 117/69 98 07/06/16 07:25 07/06/16 07:25 07/06/16 07:25 07/06/16 07:25 07/06/16 07:25 Intake & Output 07/05/16 07/06/16 07/07/16 07:59 07:59 07:59 Intake Total 4100 4320 Output Total 110 Balance 4100 4210 Weight 139 lb 15.896 oz 150 lb 5.684 oz General appearance: PRESENT: no acute distress Respiratory exam: PRESENT: clear to auscultation jumana Cardiovascular exam: ABSENT: diastolic murmur, irregular rhythm, systolic murmur GI/Abdominal exam: ABSENT: mass, organolmegaly, tenderness Extremities exam: ABSENT: pedal edema Skin exam: PRESENT: other - dressing on L scapula Results Laboratory Results: 07/06/16 04:59 07/05/16 07/06/16 12:00 04:59 Sodium 133.6 L Potassium 3.9 Chloride 100 Carbon Dioxide 21 L Anion Gap 13 BUN 23 H Creatinine 0.81 Est GFR ( Amer) > 60 Est GFR (Non-Af Amer) > 60 Glucose 95 Calcium 8.2 L Urine Osmolality 713 Labs- Last Values WBC 6.1 10^3/uL (4.0-10.5) 07/02/16 09:00 RBC 4.85 10^6/uL (4.35-5.55) 07/02/16 09:00 Hgb 16.1 g/dL (13.5-17.0) 07/02/16 09:00 Hct 45.3 % (37.9-51.0) 07/02/16 09:00 MCV 94 fl (80-97) 07/02/16 09:00 MCH 33.3 pg (27.0-33.4) 07/02/16 09:00 MCHC 35.6 g/dL (32.0-36.0) 07/02/16 09:00 RDW 12.9 % (11.5-14.0) 07/02/16 09:00 Plt Count 280 10^3/uL (150-450) 07/02/16 09:00 Seg Neutrophils % 75.8 % (42-78) 07/02/16 09:00 Lymphocytes % 9.9 % (13-45) L 07/02/16 09:00 Monocytes % 14.2 % (3-13) H 07/02/16 09:00 Eosinophils % 0.0 % (0-6) 07/02/16 09:00 Basophils % 0.1 % (0-2) 07/02/16 09:00 Absolute Neutrophils 4.6 10^3/uL (1.7-8.2) 07/02/16 09:00 Absolute Lymphocytes 0.6 10^3/uL (0.5-4.7) 07/02/16 09:00 Absolute Monocytes 0.9 10^3/uL (0.1-1.4) 07/02/16 09:00 Absolute Eosinophils 0.0 10^3/uL (0.0-0.6) 07/02/16 09:00 Absolute Basophils 0.0 10^3/uL (0.0-0.2) 07/02/16 09:00 Sodium 133.6 mmol/L (137-145) L 07/06/16 04:59 Potassium 3.9 mmol/L (3.6-5.0) 07/06/16 04:59 Chloride 100 mmol/L (98-107) 07/06/16 04:59 Carbon Dioxide 21 mmol/L (22-30) L 07/06/16 04:59 Anion Gap 13 (5-19) 07/06/16 04:59 BUN 23 mg/dL (7-20) H 07/06/16 04:59 Creatinine 0.81 mg/dL (0.52-1.25) 07/06/16 04:59 Est GFR ( Amer) > 60 (>60) 07/06/16 04:59 Est GFR (Non-Af Amer) > 60 (>60) 07/06/16 04:59 Glucose 95 mg/dL (75-110) 07/06/16 04:59 Serum Osmolality 284 mOsm/kg (275-301) 07/05/16 05:13 Calcium 8.2 mg/dL (8.4-10.2) L 07/06/16 04:59 Phosphorus 1.9 mg/dL (2.5-4.5) L 07/05/16 05:13 Magnesium 2.7 mg/dL (1.6-2.3) H 07/05/16 05:13 Total Bilirubin 1.1 mg/dL (0.2-1.3) 07/02/16 09:00 Direct Bilirubin 0.0 mg/dL (0.0-0.3) 07/02/16 09:00 AST 34 U/L (17-59) 07/02/16 09:00 ALT 27 U/L (21-72) 07/02/16 09:00 Alkaline Phosphatase 71 U/L (38-126) 07/02/16 09:00 Total Protein 9.2 g/dL (6.3-8.2) H 07/02/16 09:00 Albumin 5.5 g/dL (3.5-5.0) H 07/02/16 09:00 Lipase 121.4 U/L (23-300) 07/02/16 09:00 Urine Color YELLOW 07/02/16 13:00 Urine Appearance CLOUDY 07/02/16 13:00 Urine pH 5.0 (5.0-9.0) 07/02/16 13:00 Ur Specific [place] 1.015 07/02/16 13:00 Urine Protein 100 mg/dL (NEGATIVE) H 07/02/16 13:00 Urine Glucose (UA) 50 mg/dL (NEGATIVE) H 07/02/16 13:00 Urine Ketones NEGATIVE mg/dL (NEGATIVE) 07/02/16 13:00 Urine Blood MODERATE (NEGATIVE) H 07/02/16 13:00 Urine Nitrite NEGATIVE (NEGATIVE) 07/02/16 13:00 Urine Bilirubin NEGATIVE (NEGATIVE) 07/02/16 13:00 Urine Urobilinogen NEGATIVE mg/dL (<2.0) 07/02/16 13:00 Ur Leukocyte Esterase NEGATIVE (NEGATIVE) 07/02/16 13:00 Urine WBC (Auto) 5 /HPF 07/02/16 13:00 Urine RBC (Auto) 1 /HPF 07/02/16 13:00 U Hyaline Cast (Auto) 77 /LPF 07/02/16 13:00 Urine Bacteria (Auto) TRACE /HPF 07/02/16 13:00 Squamous Epi Cells Auto 3 /HPF 07/02/16 13:00 Urine Mucus (Auto) FEW /LPF 07/02/16 13:00 Urine Osmolality 713 mOsm/kg (300-900) 07/05/16 12:00 Urine Sodium 59 mmol/L (30-90) 07/05/16 12:00 Urine Ascorbic Acid NEGATIVE (NEGATIVE) 07/02/16 13:00 C. difficile Tox (PCR) NEGATIVE (NEGATIVE) 07/04/16 19:36 Impressions: Acute Abdomen Series 07/03/16 00:00 IMPRESSION: Findings consistent with a small bowel obstruction Qualifiers PATEINT BEING DISCHARGED WITH ANY OF THE FOLLOWING DIAGNOSIS?: No Plan Discharge Plan: home. OV 1w. Work in 5d
[2016-07-06 08:57] VITALS: BP 126/79
[2016-07-06] MEDS: FAMOTIDINE INJ/PF 20 MG/2 ML SDV IV SCH (09:26)
[2016-07-06] MEDS: PHOSPHORUS #1 250 MG TABLET PO SCH (09:38)
--- NOTE | 2016-07-06 18:33 | PROGRESS NOTE E ---
Progress Note NAME: TONIA COFFEY : 1955 AGE: 61Y DATE: 07/06/2016 ROOM: 406 SUBJECTIVE: The patient is doing well, is about to go home as he has been discharged by his primary care physician. OBJECTIVE: VITAL SIGNS: Stable. SKIN: The patient's wounds were inspected, and the 4 x 4 was removed from the sebaceous cyst cavity on the back that has undergone I and D yesterday. ASSESSMENT: STATUS POST I AND D OF INFECTED SEBACEOUS CYST OF BACK. PLAN: The patient is to have SilverCel, Aquacel, tape to the wound prior to his discharge and then is to follow up with [facility] in 4 days. DICTATING PHYSICIAN: ALEA MOONEY M.D. [id number] PHY#: [id number] ID: [id number] JOB#: [id number] ACCT: [id number] cc:ALEA MOONEY M.D. >
== END 2016-07-06 10:30 | disposition home or self-care (01) | DRG 683 ==
LOC: ER 08:23 → UNDOADMIN 10:39 → EH 10:39 → 4N 13:38 → EH 13:38 → 4N 13:44
PROVIDERS: ADMIT Family Medicine; ATTEND Family Medicine
PROC: 0HB6XZX Excision of Back Skin, External Approach, Diagnostic (ICD-10-PCS; principal; 2016-07-05 16:30)
DX: N17.0 Acute kidney failure with tubular necrosis (principal); E87.1 Hypo-osmolality and hyponatremia; K56.5 Intestinal adhesions [bands] with obstruction (postinfection); E78.5 Hyperlipidemia, unspecified; I10 Essential (primary) hypertension; M19.90 Unspecified osteoarthritis, unspecified site; A08.4 Viral intestinal infection, unspecified; L72.3 Sebaceous cyst; E83.39 Other disorders of phosphorus metabolism; R06.6 Hiccough; Z85.038 Personal history of other malignant neoplasm of large intestine; Z85.05 Personal history of malignant neoplasm of liver; Z92.21 Personal history of antineoplastic chemotherapy; Z72.89 Other problems related to lifestyle; Z90.49 Acquired absence of other specified parts of digestive tract; Z82.49 Family history of ischemic heart disease and other diseases of the circulatory system
CPT/HCPCS: 300; 36415; 74022; 80048; 80053; 81001; 83690; 83735; 83930; 83935; 84100; 84300; 85025; 87040; 87070; 87075; 87077; 87086; 87186; 87205; 87493; 88304; 90686; 93005; 93010; 96361; 96374; 96375; 99285; J0690; J1650; J2250; J2405; J2704; J3010; J3480; J3490; J7030; S0028

== ENCOUNTER 2016-11-05 09:34 | Emergency (ER) | payer OTHER ==
[2016-11-05] MEDS ORDERED: OXYCODONE-ACETAMINOPHEN 5-325 MG TABLET PO ONE (10:09)
--- NOTE | 2016-11-05 10:09 | ER Document Report ---
ED Medical Screen (RME) - General Mode of Arrival: Ambulatory Information source: Patient TRAVEL OUTSIDE OF THE [place] IN LAST 30 DAYS: No <LILIANA MANCILLA - Last Filed: 11/05/16 13:11> <CHRISTIANO BRAND - Last Filed: 11/05/16 14:01> - General Chief Complaint: Hip Pain Stated Complaint: LEFT/RIGHT HIP PAIN Time Seen by Provider: 11/05/16 10:04 Notes: Pt presents today with complaints of left hip/pelvic pain secondary to an accident at work x3 days ago. Pt describes being pinned between mini-excavator and trailer. Pt states he "blacked out" at home twice after. Pt states he fell onto dresser hitting his right chest. Pt states he was sent here from urgent care "for a CT". Pt is a smoker. (LILIANA MANCILLA) - Related Data Allergies/Adverse Reactions: No Known Allergies Allergy (Verified 11/05/16 09:43) Past Medical History - Past Medical History Cardiac Medical History: Reports: Hx Hypercholesterolemia, Hx Hypertension Renal/ Medical History: Denies: Hx Peritoneal Dialysis Malignancy Medical History: Reports Hx Colorectal Cancer - 2008 partial colectomy stage4 nodes & liver. Chemo 7m Musculoskeltal Medical History: Reports Hx Arthritis Psychiatric Medical History: Denies: Hx Depression Past Surgical History: Reports: Hx Bowel Surgery, Other - 2010 partial colectomy <LILIANA MANCILLA - Last Filed: 11/05/16 13:11> Review of Systems - Review of Systems Musculoskeletal: See HPI, Joint pain - Left hip <LILIANA MANCILLA - Last Filed: 11/05/16 13:11> Physical Exam - Extremities Hip: Tender - left hip tender with palpation <LILIANA MANCILLA - Last Filed: 11/05/16 13:11> Course - Laboratory Result Diagrams: 11/05/16 10:25 11/05/16 10:25 <LILIANA MANCILLA - Last Filed: 11/05/16 13:11> - Laboratory Result Diagrams: 11/05/16 10:25 11/05/16 10:25 <CHRISTIANO BRAND - Last Filed: 11/05/16 14:01> - Re-evaluation Re-evalutation: 11/05/16 14:01 I personally performed the services described in the documentation, reviewed and edited the documentation which was dictated to the scribe in my presence, and it accurately records my words and actions. (CHRISTIANO BRAND) - Vital Signs Vital signs: Temp Pulse Resp BP Pulse Ox 98.1 F 72 18 154/87 H 97 11/05/16 13:46 11/05/16 13:46 11/05/16 13:46 11/05/16 13:46 11/05/16 13:46 - Laboratory Laboratory results interpreted by me: 11/05/16 10:25 Sodium 136.3 L Doctor's Discharge <LILIAAN MANCILLA - Last Filed: 11/05/16 13:11> <CHRISTIANO BRAND - Last Filed: 11/05/16 14:01> - Discharge Clinical Impression: Pelvic pain in male, Hip abrasion Condition: Good Disposition: HOME, SELF-CARE Additional Instructions: Follow-up with your primary care physician. Activity as tolerated. Use the Silvadene cream a couple times per day until the wound has healed. Prescriptions: Hydrocodone/Acetaminophen [[place] 10-325 mg Tablet] 1 tab PO Q6HP PRN #14 tablet PRN Reason: For Pain Forms: Elevated Blood Pressure, Return to Work Referrals: TRACEY OJEDA MD [Primary Care Provider] - Follow up as needed Scribe Documentation - Scribe Written by Magdiel:: Magdiel Paredes, 11/05/2016 1047 acting as scribe for :: Gagan <LILIANA MANCILLA - Last Filed: 11/05/16 13:11>
[2016-11-05 10:46] LABS: ABSOLUTE BASOPHILS # (AUTO) 0.1 10^3/uL (0.0-0.2); ABSOLUTE LYMPHOCYTES (AUTO) 1.1 10^3/uL (0.5-4.7); ABSOLUTE MONOCYTES (AUTO) 0.7 10^3/uL (0.1-1.4); ABSOLUTE NEUT (AUTO) 5.7 10^3/uL (1.7-8.2); BASOPHILS % (AUTO) 0.9 % (0-2); EOSINOPHILS % (AUTO) 0.3 % (0-6); HEMATOCRIT 43.5 % (37.9-51.0); HEMOGLOBIN 14.9 g/dL (13.5-17.0); HGB HCT DIFFERENCE 1.2; LYMPHOCYTES % (AUTO) 14.5 % (13-45); MEAN CORPUSCULAR HEMOGLOBIN 32.5 pg (27.0-33.4); MEAN CORPUSCULAR HGB CONC 34.3 g/dL (32.0-36.0); MEAN CORPUSCULAR VOLUME 95 fl (80-97); MONOCYTES % (AUTO) 9.2 % (3-13); RED BLOOD COUNT 4.59 10^6/uL (4.35-5.55); RED CELL DISTRIBUTION WIDTH 12.8 % (11.5-14.0); SEGMENTED NEUTROPHILS % (AUTO) 75.1 % (42-78); WHITE BLOOD COUNT 7.6 10^3/uL (4.0-10.5)
[2016-11-05 11:03] LABS: ALANINE AMINOTRANSFERASE 34 U/L (21-72); ALBUMIN 4.3 g/dL (3.5-5.0); ALKALINE PHOSPHATASE 79 U/L (38-126); ANION GAP 11 (5-19); ASPARTATE AMINO TRANSFERASE 30 U/L (17-59); BILIRUBIN,DIRECT 0.4 mg/dL (0.0-0.4); BILIRUBIN,TOTAL 0.7 mg/dL (0.2-1.3); BLOOD UREA NITROGEN 13 mg/dL (7-20); CALCIUM 9.9 mg/dL (8.4-10.2); CARBON DIOXIDE 25 mmol/L (22-30); CHLORIDE 100 mmol/L (98-107); CREATININE RESULT 0.92 mg/dL (0.52-1.25); GLUCOSE 106 mg/dL (75-110); POTASSIUM 4.9 mmol/L (3.6-5.0); SODIUM 136.3 mmol/L (137-145); TOTAL PROTEIN 8.1 g/dL (6.3-8.2)
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
[2016-11-05 13:48] VITALS: BP 154/87
--- NOTE | 2016-11-05 20:37 | EKG REPORT ---
SEVERITY:- NORMAL ECG - SINUS RHYTHM : Confirmed by: Jose Quintanilla 05-Nov-2016 20:36:17
== END 2016-11-05 13:47 | disposition home or self-care (01) ==
LOC: ER 09:34
DX: R10.2 Pelvic and perineal pain (principal); M25.552 Pain in left hip; S70.212A Abrasion, left hip, initial encounter; W23.0XXA Caught, crushed, jammed, or pinched between moving objects, initial encounter; Y99.0 Civilian activity done for income or pay; R55 Syncope and collapse; R42 Dizziness and giddiness; R07.9 Chest pain, unspecified; W18.39XA Other fall on same level, initial encounter; F17.200 Nicotine dependence, unspecified, uncomplicated; E78.00 Pure hypercholesterolemia, unspecified; I10 Essential (primary) hypertension; Z85.038 Personal history of other malignant neoplasm of large intestine; Z85.05 Personal history of malignant neoplasm of liver
CPT/HCPCS: 36415; 71020; 72192; 80053; 85025; 93005; 93010; 99284

== ENCOUNTER 2017-11-07 09:43 | Emergency (ER) | payer OTHER ==
[2017-11-07 10:04] VITALS: BP 188/99
--- NOTE | 2017-11-07 10:34 | ER Document Report ---
ED Skin Rash/Insect Bite/Abscs - General Chief Complaint: Hand Pain Stated Complaint: POSSIBLE BITE Time Seen by Provider: 11/07/17 10:15 Mode of Arrival: Ambulatory Information source: Patient Notes: 62-year-old male presents to ED for complaint of pain swelling and redness to the right middle finger. He states he went to work Saturday there was nothing wrong. Saturday he started scratching his finger. He states yesterday he noticed a small amount of purple by the end of the day it was a large purple swelling over the area. He states he poked it with a needle last night and got small amount of pus out of it and so he decided he needs to go to urgent care today. He states he went to urgent care and they sent him to the emergency room. He is alert oriented pupils equal and react to light he is speaking in full sentence breathing is normal unlabored over and he is was ambulating with a even steady gait. TRAVEL OUTSIDE OF THE [place] IN LAST 30 DAYS: No - HPI Patient complains to provider of: Tender/swollen area Onset: Other - Started Saturday Onset/Duration: Gradual Quality of pain: Pressure Severity: Moderate Pain Level: 2 Skin Character: Abscess Quality of rash: Itchy, Painful Identify cause: Yes Exacerbated by: Denies Relieved by: Denies Similar symptoms previously: Yes Recently seen / treated by doctor: No - Related Data Allergies/Adverse Reactions: No Known Allergies Allergy (Verified 11/07/17 09:45) Past Medical History - General Information source: Patient - Social History Smoking Status: Current Every Day Smoker Cigarette use (# per day): Yes - Pack per day Frequency of alcohol use: Social Drug Abuse: None Family History: Reviewed & Not Pertinent, Hypertension, Other - Mother, brother and sister with colon polyps, but no one with colon cancer. Patient has suicidal ideation: No Patient has homicidal ideation: No - Past Medical History Cardiac Medical History: Reports: Hx Hypercholesterolemia, Hx Hypertension Pulmonary Medical History: Reports: None EENT Medical History: Reports: None Neurological Medical History: Reports: None Endocrine Medical History: Reports: None Renal/ Medical History: Reports: None Malignancy Medical History: Reports Hx Colorectal Cancer - 2009 partial colectomy stage4 nodes & liver. Chemo 7m GI Medical History: Reports: None Musculoskeltal Medical History: Reports Hx Arthritis Skin Medical History: Reports None Psychiatric Medical History: Reports: None Traumatic Medical History: Reports: None Infectious Medical History: Reports: None Past Surgical History: Reports: Hx Bowel Surgery - Colon cancer removed, Other - 2011 partial colectomy Review of Systems - Review of Systems Constitutional: No symptoms reported EENT: No symptoms reported Cardiovascular: No symptoms reported Respiratory: No symptoms reported Gastrointestinal: No symptoms reported Genitourinary: No symptoms reported Male Genitourinary: No symptoms reported Musculoskeletal: No symptoms reported Skin: No symptoms reported, Other - Tender swollen area to the right middle finger Hematologic/Lymphatic: No symptoms reported Neurological/Psychological: No symptoms reported -: Yes All other systems reviewed and negative Physical Exam - Vital signs Vitals: Temp Pulse Resp BP Pulse Ox 98.2 F 74 18 188/99 H 97 11/07/17 10:02 11/07/17 10:02 11/07/17 10:02 11/07/17 10:02 11/07/17 10:02 Interpretation: Normal - General General appearance: Appears well, Alert - HEENT Head: Normocephalic, Atraumatic Eyes: Normal Pupils: PERRL - Respiratory Respiratory status: No respiratory distress Chest status: Nontender Breath sounds: Normal Chest palpation: Normal - Cardiovascular Rhythm: Regular Heart sounds: Normal auscultation Murmur: No - Abdominal Inspection: Normal Distension: No distension Bowel sounds: Normal Tenderness: Nontender Organomegaly: No organomegaly - Back Back: Normal, Nontender - Extremities General upper extremity: Normal temperature General lower extremity: Normal inspection, Nontender, Normal color, Normal ROM , Normal temperature, Normal weight bearing. No: Sheldon's sign Hand: No evidence of human bite, No evidence of FB, Swelling, Other - Abscess right middle finger - Neurological Neuro grossly intact: Yes Cognition: Normal Orientation: AAOx4 Datil Coma Scale Eye Opening: Spontaneous Serena Coma Scale Verbal: Oriented Datil Coma Scale Motor: Obeys Commands Datil Coma Scale Total: 15 Speech: Normal Motor strength normal: LUE, RUE, LLE, RLE Sensory: Normal - Psychological Associated symptoms: Normal affect, Normal mood - Skin Skin Temperature: Warm Skin Moisture: Dry Skin Color: Normal Skin irregularity: Abscess - Right middle finger Irregularity with: Swelling, Tenderness, Warmth Course - Re-evaluation Re-evalutation: 11/07/17 10:42 Abscess was cleaned with ChloraPrep opened with a 18-gauge needle and the area was well observed. Amount of purulent drainage removed wound culture sent the patient was treated with Tylenol Septra and Keflex and instructed on use of same at home as well as Epson salt soaks. Patient to follow-up with her primary doctor in 3-4 days if wound is not healing or return to ED tomorrow if wound looks any worse. - Vital Signs Vital signs: Temp Pulse Resp BP Pulse Ox 98.2 F 74 18 188/99 H 97 11/07/17 10:02 11/07/17 10:02 11/07/17 10:02 11/07/17 10:02 11/07/17 10:02 Procedures - Incision and Drainage Right Finger 3rd digit Time completed: 10:38 Type: Simple Anesthetic type: Other - None mL's of anesthetic: 0 Blade size: Other - 18-gauge needle I&D procedure: Chlorprep applied Incision Method: Incision made with needle Amount/type of drainage: Moderate amount purulent drainage Discharge - Discharge Clinical Impression: Abscess of right middle finger HTN (hypertension) Qualifiers: Hypertension type: unspecified Qualified Code(s): I10 - Essential (primary) hypertension Condition: Stable Disposition: HOME, SELF-CARE Instructions: Family Physicians / Practices Additional Instructions: ABSCESS: You have an abscess (boil). This a pus-forming infection, usually due to staph. Some boils may be left to drain on their own, but most require lancing. From the time the tender lump first appears, it may be three or four days before the abscess is ready to zuleika. Local heat and rest help at this stage of treatment. An antibiotic may prevent spread of the infection. Once the abscess is opened, packing may be placed into it. This is done so pus is not sealed inside by premature closure of the cavity. The packing will be removed at your follow-up visit or you may be advised to remove it yourself at home. Sometimes this packing must be replaced a few times during healing. The wound will heal with surprisingly little scar. Depending on the size and location of an abscess, healing can take one to four weeks. You may shower and wash the area around the incision site two or three times a day. Antibiotics may be prescribed, but are usually not necessary after an abscess has been drained. If you develop fever, chills, worsening pain, or increasing swelling in the area, call the doctor or return immediately. POST INCISION AND DRAINAGE: You have had an incision made to allow drainage of an abscess. The incision must remain open so that pus and debris can drain from the wound. If the abscess cavity is large, packing is placed. This keeps the tissues from collapsing and trapping pus inside, while the body shrinks the cavity. The packing may need to be replaced every day or two. The physician will instruct you on the packing. Keep a bulky dressing over the area. Replace it if it becomes saturated with blood or pus. Do not disturb the packing (if present). You may shower and cleanse the area with gentle soap and warm water two or three times a day. Local warmth may be soothing, and may promote faster healing. Return if you develop high fever or chills, or if you note spreading redness, increasing swelling, or increasing tenderness. Epsom Salt Soaks Soak the wound area in a container of warm epsom salt water. If you can't get the wound area into a bucket or britton, use a folded towel soaked in the epsom salt solution and apply to the area. Use clean hot tap water (about the temperature of a very warm bath), mixing in about one (1) teaspoon for every pint of water. Two gallon --> 16 teaspoons Epsom Salts One gallon --> 8 teaspoons Epsom Salts Two quarts --> 4 teaspoons Epsom Salts One quart --> 2 teaspoons Epsom Salts Soak the wound for about 20 minutes while gently moving it around in the water. Repeat this four (4) times a day. CEPHALEXIN: The antibiotic you've been prescribed is a member of the cephalosporin class. This type of antibiotic covers a wide variety of infections, including those of the skin, lungs, and urinary tract. It's useful for staph infections. This antibiotic is slightly similar to the penicillin family. In rare cases , a person who is allergic to penicillin will also be allergic to this medication. If you have had a severe allergic reaction to penicillin, and have not taken this antibiotic since that time, notify your doctor. Antibiotics which cover many germs ("broad spectrum" antibiotics) are more likely to cause diarrhea or "yeast" infections. Women prone to vaginal yeast problems may suffer an attack after taking this antibiotic. In infants, oral thrush (white spots "stuck" on the cheek) or yeast diaper rash may result. See your doctor if these problems occur. Call at once if you develop itching, hives , shortness of breath, or lightheadedness. TRIMETHOPRIM-SULFA: You have been given a prescription for trimethoprim-sulfa (TMS, Septra, Bactrim). This is a combination antibiotic of the sulfa class, often used for urinary tract infections, middle ear infections, bronchitis, shigella intestinal infection, and Pneumocystis pneumonia. TMS is usually well-tolerated. Occasional side effects include nausea and decreased appetite. Septra is not recommended for infants less than two months of age. Do not take this medication if you have experienced severe side effects or allergy to sulfa medicine. You should stop this medicine at once and contact your physician if you develop any rash, joint pain, shortness of breath, bruising, or jaundice ( yellow color in the skin), or if you develop any other new or unusual symptoms. Return to the emergency room tomorrow if that is not looking better. If it is improving please follow-up with her primary doctor within the next 3-4 days to ensure that it is healing FOLLOW-UP CARE: Most simple abscesses will not require a follow up visit. If you had packing placed in the abscess, remove it as instructed by the physician. If you have been referred to a physician for follow-up care, call the physicians office for an appointment as you were instructed or within the next two days. If you experience worsening or a significant change in your symptoms, return to the Emergency Department at any time for re-evaluation. Prescriptions: Cephalexin Monohydrate [Keflex 500 mg Capsule] 500 mg PO QID #20 capsule Sulfamethoxazole/Trimethoprim [Septra-Ds 800-160 mg Tablet] 1 tab PO BID #20 tablet Forms: Elevated Blood Pressure, Smoking Cessation Education, Return to Work Referrals: TRACEY OJEDA MD [Primary Care Provider] - Follow up as needed
[2017-11-07] MEDS ORDERED: ACETAMINOPHEN 325 MG TABLET PO ONE (10:36)
[2017-11-07] MEDS ORDERED: SULFAMETHOXAZOLE/TRIMETHOPRIM 800-160 MG TABLET PO ONE (10:36)
[2017-11-07] MEDS ORDERED: CEPHALEXIN 500 MG CAPSULE PO ONE (10:36)
== END 2017-11-07 10:52 | disposition home or self-care (01) ==
LOC: ER 09:43
DX: L02.511 Cutaneous abscess of right hand (principal); M79.644 Pain in right finger(s); I10 Essential (primary) hypertension; F17.210 Nicotine dependence, cigarettes, uncomplicated; Z85.048 Personal history of other malignant neoplasm of rectum, rectosigmoid junction, and anus
CPT/HCPCS: 87070; 87075; 87077; 87186; 87205; 99283